=== PATIENT | female | born 1990 | race Caucasian/White ===

== ENCOUNTER 2017-07-01 16:10 | Observation (INO) | payer OTHER ==
--- NOTE | 2017-07-02 16:32 | US ---
EXAM DATE: 07/01/17 PATIENT'S AGE: 26 Patient: DANIEL SPEARS Facility: [place], [place] Site . Site : 1990 Study: US OB Pelvis [id number] 5:27:18 PM Ordering Physician: Omer Izquierdo Final Report: INDICATION: Decreased movement. TECHNIQUE: Obstetrical ultrasound. Ultrasound biophysical profile FINDINGS: Only 7 static images are sent for interpretation. A single live intrauterine is seen with cardiac activity at 136 beats per minute. I suspect there is cephalic presentation. Amniotic fluid volume was within normal limits with an ZELDA calculated at 16.07 cm. The biophysical profile was scored at normal with a scores of 2/2 for breathing, movement, tone, and amniotic fluid volume. Remainder negative. IMPRESSION: Single live intrauterine with normal biophysical profile. Dictated by Deepak Nicholson MD @ Jul 01 2017 5:42PM (Electronic Signature) Report Signed by Proxy. EFRAIN
== END 2017-07-01 17:45 | disposition home or self-care (01) ==
LOC: MW.OBCHECK 16:10 → MW.OB 16:27
PROVIDERS: ADMIT Obstetrics & Gynecology; ATTEND Obstetrics & Gynecology
DX: O36.8130 Decreased fetal movements, third trimester, not applicable or unspecified (principal); Z3A.39 39 weeks gestation of pregnancy
CPT/HCPCS: 59025; 76819; 76819-26

== ENCOUNTER 2017-07-19 05:17 | Inpatient (IN) | payer OTHER ==
[2017-07-19] MEDS ORDERED: Sodium Chloride 0.9% 10 ML Syringe FLUSH PRN (05:25)
[2017-07-19] MEDS ORDERED: ceFAZolin 2 GM in Premix Bag 1 BAG IV ONE (05:25)
[2017-07-19] MEDS ORDERED: Sodium Chloride 0.9% 2.5 ML Syringe FLUSH PRN (05:25)
[2017-07-19] MEDS ORDERED: Citric Acid/Sodium Citrate Solution 30 ML Cup PO SCH (05:30)
[2017-07-19] MEDS ORDERED: Oxytocin/0.9 % Sodium Chloride 30 UNIT/500 ML BAG IV SCH (05:30)
[2017-07-19] MEDS: Lactated Ringers 1,000 ML IV SCH ×2 (05:59→07:53)
[2017-07-19] MEDS ORDERED: Octyl 2-Cyanoacrylate 1 Tube ONE (07:29)
[2017-07-19] MEDS ORDERED: ePHEDrine 50 MG/ML SDV ONE (07:30)
[2017-07-19] MEDS ORDERED: Morphine PF 1 MG/ML Amp ONE (07:30)
[2017-07-19] MEDS ORDERED: Propofol 200 MG/20 ML SDV ONE (07:30)
[2017-07-19] MEDS ORDERED: Ketorolac 30 MG/ML SDV ONE (07:31)
[2017-07-19] MEDS ORDERED: ceFAZolin/Dextrose,Iso-Osmotic 2 GM/50 ML Duplex Bag IV ONE (07:31)
[2017-07-19] MEDS ORDERED: Ondansetron 4 MG/2 ML SDV ONE (07:31)
[2017-07-19] MEDS ORDERED: Lidocaine 2% 5 ML SDV ONE (07:31)
[2017-07-19] MEDS ORDERED: Phenylephrine/Normal Saline 100 MCG/ML 10 ML Syringe ONE (08:08)
--- NOTE | 2017-07-19 08:42 | PCM.PREANE ---
Preanesthetic Assessment - Anesthesia/Transfusion/Family Hx Anesthesia History: Prior Anesthesia Without Reaction Family History of Anesthesia Reaction: No Transfusion History: No Prior Transfusion(s) - Review of Systems Other: Reports: None - Physical Assessment NPO Status Date: 07/18/17 NPO Status Time: 23:30 Pulse: 112 O2 Sat by Pulse Oximetry: 99 Respiratory Rate: 16 Blood Pressure: 106/76 Temperature: 97 C Height: 5 ft 5 in Weight: 97.069 kg ASA Class: 2 Mental Status: Alert & Oriented x3 Airway Class: Mallampati = 1 Dentition: Reports: Normal Dentition Thyro-Mental Finger Breadths: 3 Mouth Opening Finger Breadths: 3 ROM/Head Extension: Full - Lab Values: Laboratory Last Values WBC 10.33 K/uL (4.0-11.0) 07/18/17 09:03 RBC 4.24 M/uL (4.30-5.90) L 07/18/17 09:03 Hgb 11.8 g/dL (12.0-16.0) L 07/18/17 09:03 Hct 34.2 % (36.0-46.0) L 07/18/17 09:03 MCV 80.7 fL (80.0-98.0) 07/18/17 09:03 MCH 27.8 pg (27.0-32.0) 07/18/17 09:03 MCHC 34.5 g/dL (31.0-37.0) 07/18/17 09:03 RDW Std Deviation 43.4 fl (28.0-62.0) 07/18/17 09:03 RDW Coeff of Enrique 15 % (11.0-15.0) 07/18/17 09:03 Plt Count 240 K/uL (150-400) 07/18/17 09:03 MPV 9.50 fL (7.40-12.00) 07/18/17 09:03 Nucleated RBC % 0.0 /100WBC 07/18/17 09:03 Nucleated RBCs # 0 K/uL 07/18/17 09:03 Blood Type O POSITIVE 07/18/17 09:03 Antibody Screen NEGATIVE 07/18/17 09:03 - Allergies Allergies/Adverse Reactions: Allergies Allergy/AdvReac Type Severity Reaction Status Date / Time terbutaline Allergy Tachycardia Verified 07/19/17 05:29 - Blood Blood Available: Yes Product(s) Available: PRBC - Anesthesia Plan Pre-Op Medication Ordered: Antacids - Acknowledgements Anesthesia Type Planned: Spinal Pt an Appropriate Candidate for the Planned Anesthesia: Yes Alternatives and Risks of Anesthesia Discussed w Pt/Guardian: Yes Pt/Guardian Understands and Agrees with Anesthesia Plan: Yes PreAnesthesia Questionnaire HEENT History: Reports: Other (See Below) Other HEENT History: wears glasses/contacts Cardiovascular History: Reports: Other (See Below) Other Cardiovascular History: sinus tachycardia during had echo 04/05 EF 60%. 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: - Infectious Disease History Infectious Disease History: Reports: Chicken Pox - Past Surgical History Head Surgeries/Procedures: Reports: None Female Surgical History: Reports: Section (x3) Other Female Surgeries/Procedures: c/section x3 Dermatological Surgical History: Reports: Plastic Surgical Reconstruction/ Repair (mckenzie to legs at age 1 had skin grafts) - SUBSTANCE USE Smoking Status *Q: Never Smoker Recreational Drug Use History: No - HOME MEDS Home Medications: Home Meds Iron 27 mg PO DAILY 07/16/17 [History] PNV95/Ferrous Fumarate/FA [ Vitamin Tablet] 1 tab PO DAILY 07/16/17 [ History] - CURRENT (IN HOUSE) MEDS Current Meds: Current Medications Citric Acid/Sodium Citrate (Bicitra Solution) 30 ml PO .ONCE LEONARDO Last Admin: 07/19/17 07:47 Dose: 30 ml Lactated Ringer's (Ringers, Lactated) 1,000 mls @ 500 mls/hr IV .BOLUS LEONARDO Last Admin: 07/19/17 07:53 Dose: 500 mls/hr Oxytocin/Sodium Chloride (Oxytocin 30 Unit/500 Ml-Ns) 30 unit in 500 mls @ 250 mls/hr IV TITRATE LEONARDO Sodium Chloride (Saline Flush) 10 ml FLUSH ASDIRECTED PRN PRN Reason: Keep Vein Open Sodium Chloride (Saline Flush) 2.5 ml FLUSH ASDIRECTED PRN PRN Reason: Keep Vein Open Discontinued Medications Cefazolin Sodium/Dextrose (Ancef) Confirm Administered Dose 2 gm IV .STK-MED ONE Stop: 07/19/17 07:32 Ephedrine Sulfate (Ephedrine Sulfate) Confirm Administered Dose 50 mg .ROUTE .STK-MED ONE Stop: 07/19/17 07:31 Cefazolin Sodium/Dextrose 2 gm (/ Premix) 50 mls @ 100 mls/hr IV ONETIME ONE Stop: 07/19/17 05:54 Ketorolac Tromethamine (Toradol) Confirm Administered Dose 30 mg .ROUTE .STK- MED ONE Stop: 07/19/17 07:32 Lidocaine (Xylocaine-Mpf 2%) Confirm Administered Dose 5 ml .ROUTE .STK-MED ONE Stop: 07/19/17 07:32 Morphine Sulfate (Duramorph Pf) Confirm Administered Dose 1 mg .ROUTE .STK-MED ONE Stop: 07/19/17 07:31 Octyl Cyanoacrylate (Dermabond Advance) Confirm Administered Dose 1 applic .ROUTE .STK-MED ONE Stop: 07/19/17 07:30 Ondansetron HCl (Zofran) Confirm Administered Dose 4 mg .ROUTE .STK-MED ONE Stop: 07/19/17 07:32 Phenylephrine HCl (Phenylephrine In Ns 100 Mcg/Ml) Confirm Administered Dose 1 mg .ROUTE .STK-MED ONE Stop: 07/19/17 08:09 Propofol (Diprivan 20 Ml) Confirm Administered Dose 200 mg .ROUTE .STK-MED ONE Stop: 07/19/17 07:31
[2017-07-19] MEDS ORDERED: Oxytocin 10 Units/1 ML SDV ONE (09:12)
[2017-07-19] MEDS ORDERED: Bisacodyl 10 MG Supp RECTAL PRN (09:25)
[2017-07-19] MEDS ORDERED: Lanolin 100% Cream 7 GM Tube TOP PRN (09:25)
[2017-07-19] MEDS ORDERED: Acetaminophen/oxyCODONE 325-5 MG Tab PO PRN (09:25)
[2017-07-19] MEDS ORDERED: diphenhydrAMINE 50 MG/ML SDV IVPUSH PRN ×2 (09:25→09:44)
--- NOTE | 2017-07-19 09:25 | PCM.OPNOTE ---
- General Post-Op/Procedure Note Date of Surgery/Procedure: 07/19/17 Operative Procedure(s): repeat low transverse Findings: Liveborn femal 99 weight 3410 grams, normal tubes and ovaries, very thin lower uterine segment. Subcutaneous, fascial rectus muscle dense and adhesions Pre Op Diagnosis: 39 weeks prior desires repeat Post-Op Diagnosis: Same Anesthesia Technique: Spinal Primary Surgeon: Felecia Tello Anesthesia Provider: Ilir Freitas Program Strategist: Loida Joiner Pathology: none Fluid Replacement, Intraop: 3,800 EBL in mLs: 1,000 Complications: None Known Condition: Good
[2017-07-19] MEDS ORDERED: Lactated Ringers 1,000 ML IV SCH (09:30)
[2017-07-19] MEDS ORDERED: Nalbuphine 10 MG/1 ML Vial IVPUSH PRN (09:44)
[2017-07-19] MEDS ORDERED: Naloxone 0.4 MG/ML Syringe IVPUSH PRN (09:44)
--- NOTE | 2017-07-19 10:21 | PCM.POSTAN ---
POST ANESTHESIA ASSESSMENT - MENTAL STATUS Mental Status: Alert, Oriented - RESPIRATORY Respiratory Status: Respiratory Rate WNL, Airway Patent, O2 Saturation Stable - CARDIOVASCULAR CV Status: Pulse Rate WNL, Blood Pressure Stable - GASTROINTESTINAL GI Status: No Symptoms - PAIN Pain Score: 0 - POST OP HYDRATION Hydration Status: Adequate & Stable
[2017-07-19] MEDS: Ketorolac 30 MG/ML SDV IVPUSH SCH ×3 (10:58→21:26)
--- NOTE | 2017-07-19 13:39 | OR ---
SURGEON: Felecia Tello M.D. DATE OF PROCEDURE: 07/19/2017 PREOPERATIVE DIAGNOSES: 1. Thirty-nine week intrauterine . 2. Prior deliveries, desires repeat. POSTOPERATIVE DIAGNOSES: 1. Thirty-nine week intrauterine . 2. Prior deliveries, desires repeat. PROCEDURE: Repeat low-transverse section. ANESTHESIA: Spinal. ESTIMATED BLOOD LOSS: 1000 mL. FLUIDS: 3800 mL crystalloid. FINDINGS: Liveborn female, scores 9 and 9, weighing 3410 g. Normal-appearing tubes and ovaries. Extremely thin lower uterine segment. Extensive adhesions between the subcutaneous tissue, fascia, and rectus muscle. COMPLICATIONS: None known. DISPOSITION: Stable to recovery. BRIEF HISTORY: This is a 26-year-old female, she is G4, P3. She presents for repeat delivery. Her care has been complicated by palpitations with SVT. She has seen the grocery store clerk who did perform an echocardiogram and Holter monitor with findings of SVT and she has had episodes throughout the , but has not required medication to this point. She is group B strep negative, O positive, rubella immune. Risks of delivery were discussed including risk of bleeding, infection, injury to bowel, bladder, blood vessels, ureters or other organs, risk of thromboembolic event, and risk of anesthesia. Understanding all these risks, she does desire to proceed. DESCRIPTION OF PROCEDURE: With the patient in left tilt position, under adequate spinal analgesia, the abdomen was prepped with chlorhexidine and draped in usual fashion for abdominal surgery. An appropriate time-out was held. SCDs were in place. Beach catheter was in place and she had received 2 g of Ancef IV. After documentation of adequate analgesia, the prior cicatrix was excised and the incision was carried through the subcutaneous tissue to the fascia, which was scored transversely in the midline. The fascial incision was extended using sharp and blunt dissection. The fascia was elevated from the underlying rectus muscles using sharp and blunt dissection. Extensive adhesions were noted. Once this was complete, the finger was used to enter the peritoneum. There were no adhesions anteriorly. The incision was extended using sharp and blunt dissection. The Kenn O retractor was placed. The visceral peritoneum over the lower uterine segment was incised and pushed well below the field of dissection. A very thin lower uterine segment was began to be incised with a scalpel, but opened without really any incision. The amniotic membranes were then ruptured and the head was delivered via the uterine incision with fundal pressure. The infant was bulb suctioned by nose and mouth. Cord was clamped x2 and cut. The infant handed to the nurse in attendance at delivery. The was a liveborn female, scores 9 and 9, weighing 3410 g. Cord blood was collected for cord ABGs as well as routine cord blood sampling. The placenta was removed by manual extraction. The uterus was cleaned with a dry laparotomy tape. The cervix was opened with a ring forceps. There was bleeding at the right aspect of the incision, this was grasped with a ring forceps and controlled with a [id number] suture of 0 Polysorb. The 0 Polysorb was then utilized to close the uterine incision with a running lock suture and then an imbricating layer also of 0 Polysorb. Several [id number] sutures were placed in for complete hemostasis. The paracolic gutters and posterior cul-de- sac were cleaned with a wet laparotomy tape. The uterine incision was again carefully inspected. At this point, she did have some tachycardia into the 140s with episode of hypotension and therefore, I waited until Anesthesia had corrected the hypotension and continued to observe the uterine incision and it was hemostatic. The Kenn O retractor was removed. The uterine incision was once again inspected. The rectus muscle and peritoneum were loosely approximated in the midline using a running mattress suture of 0 Polysorb. The posterior aspect of the fascia was inspected, any areas of bleeding that were noted were cauterized. The fascial incision was closed with a running suture of 0 Polysorb. Subcutaneous tissue was copiously irrigated. Any areas of bleeding that were noted were cauterized. The deep subcutaneous tissue was closed with a running suture of 3-0 plain followed by a subcuticular suture of 3-0 Polysorb followed by skin glue. Final sponge, needle, and instrument counts were reported as correct. There were no known complications. Mother and baby are in recovery in good condition. Cardiology has been reconsulted regarding the tachycardia for consideration of medication at this time. GARFIELD / DIANE /[id number]
[2017-07-19] MEDS: Ondansetron 4 MG/2 ML SDV IV PRN ×2 (15:44→20:21)
--- NOTE | 2017-07-19 17:16 | CONS ---
DATE OF CONSULTATION: DATE OF : 1990 PRIMARY CARE PHYSICIAN: None PCP REASON FOR CONSULTATION: Tachycardia. HISTORY OF PRESENT ILLNESS: This is a 26-year-old female, G4, P4, who just had a today was consulted to me due to the tachycardia during the operation. While she was in the operating room while doing the , she developed low normal blood pressure with a blood pressure of 100/50 and phenylephrine IV infusion was started and her heart rate stayed around 100 to 110 and all of a sudden her blood pressure dropped at 80/50 with a heart rate of 140 with concern about an SVT. However, there is no strip or EKG available when that happened and then the IV fluid was started with Ringer Lactate then the completed. When she was in the recovery room, her heart rate got better to below 100. An EKG was done, it looks sinus rhythm to me. When she was in her room after the operation, she was throwing up once. At that time, the telemetry shows sinus tachycardia still. There was no evidence of atrial fibrillation or SVT. I saw her in the clinic and echocardiogram was also done and it showed normal ejection fraction, only trace TR, trace MR, and Holter monitor also was completed as well and it showed a heart rate of 140 or 150 on the Holter monitor. To me it looks like a sinus tachycardia still and I believe that when she was in the operating room with a heart rate of 140 or 150 could be a sinus tachycardia, however, there is no strip or verbal when she had a high heart rate. Otherwise currently she denies severe pain. She has not eaten yet and she is on IV fluids now. Her heart rate right now is 80 to 90 and with blood pressure 98/56. Otherwise denies chest pain, palpitations. PAST MEDICAL HISTORY: Including no prior cardiac history. FAMILY HISTORY: Maternal grandfather has a history of pacemaker. Uncle had history of Loretta- Parkinson-White syndrome. REVIEW OF SYSTEMS: Except for palpitation has been negative for other symptoms. PHYSICAL EXAMINATION: GENERAL APPEARANCE: The patient looks tired. VITAL SIGNS: Heart rate of 80 to 90, temperature 36.5, blood pressure is 98/58, O2 saturation 100% on room air, respirations 18. HEENT: Not pale. Mouth dry. No jaundice. NECK: No JVD. HEART: Normal S1, S2. No murmur. LUNGS: Clear. ABDOMEN: Soft, nontender. Bowel sounds are present. No hepatosplenomegaly. EXTREMITIES: Legs, no edema. EKG was done on July 19, 2017, shows sinus rhythm. I did not appreciate any delta waves. Heart rate of 92, NH interval 148, QRS duration 86, QTc interval 441. Telemetry when she was heart rate in 140 to 150 shows sinus tachycardia. No evidence of atrial fibrillation or SVT. PLAN: This is a 26-year-old female, who just had a developed hypotension during the operation, could be related to the blood loss, volume loss, volume shift. I believe that the heart rate of 140 during the operation even though there was no verbal strip it could be related to sinus tachycardia, in other words reactive sinus tachycardia. Recommended to control pain, hydration. She just had blood work done and did not show any severe anemia or profound anemia I would not prescribe beta-moriah or AV pablo blocking agent at this time. This seems to be reactive sinus tachycardia. RENE CONTRERAS /[id number]
[2017-07-19] MEDS: Docusate Sodium 100 MG Cap PO SCH (21:27)
--- NOTE | 2017-07-20 01:34 | PCM48HPAN ---
Post Anesthesia Note - EVALUATION WITHIN 48HRS OF ANESTHETIC Vital Signs in Normal Range: Yes Patient Participated in Evaluation: Yes Respiratory Function Stable: Yes Airway Patent: Yes Cardiovascular Function Stable: Yes Hydration Status Stable: Yes Pain Control Satisfactory: Yes Nausea and Vomiting Control Satisfactory: Yes Mental Status Recovered: Yes Pulse Rate: 112 Resp Rate: 17 Temperature: 97 C Blood Pressure: 106/76
[2017-07-20] MEDS: Ketorolac 30 MG/ML SDV IVPUSH SCH ×2 (03:32→09:43)
[2017-07-20 05:26] LABS: CHLORIDE,CL 108 mmol/L (98-110); SODIUM,NA 137 mmol/L (136-146)
--- NOTE | 2017-07-20 08:17 | PCM.PNPP ---
<Татьяна Geronimo - Last Filed: 07/20/17 08:12> - General Info Date of Service: 07/20/17 Functional Status: Reports: Pain Controlled, Tolerating Diet, Ambulating - Review of Systems General: Denies: Fever, Weakness, Fatigue Pulmonary: Denies: Shortness of Breath, Pleuritic Chest Pain, Cough Cardiovascular: Denies: Chest Pain, Palpitations, Dyspnea on Exertion Gastrointestinal: Denies: Abdominal Pain Genitourinary: Denies: Dysuria - General Info Date of Service: 07/20/17 - Patient Data Vital Signs - Most Recent: Last Vital Signs Temp 97 C H 07/20/17 01:34 Pulse 78 07/20/17 04:02 Resp 17 07/20/17 06:05 BP 100/59 L 07/20/17 04:02 Pulse Ox 95 07/20/17 06:05 Weight - Most Recent: 214 lb I&O - Last 24 Hours: Intake & Output 07/19/17 07/20/17 07/20/17 22:59 06:59 14:59 Intake Total 120 552 Output Total 450 1600 Balance -330 -1048 Lab Results - Last 24 Hours: Laboratory Results - last 24 hr 07/20/17 07/20/17 Range/Units 04:54 04:54 Hgb 8.3 L (12.0-16.0) g/dL Hct 24.6 L (36.0-46.0) % Sodium 137 (136-146) mmol/L Potassium 4.6 (3.5-5.1) mmol/L Chloride 108 (98-110) mmol/L Carbon Dioxide 23 (21-31) mmol/L BUN 3 L (6.0-23.0) mg/dL Creatinine 0.5 L (0.6-1.5) mg/dL Est Cr Clr Drug Dosing 150.73 mL/min Estimated GFR (MDRD) > 60.0 ml/min Glucose 79 (60-110) mg/dL Calcium 8.3 L (8.8-10.8) mg/dL Med Orders - Current: Current Medications Bisacodyl (Dulcolax) 10 mg RECTAL .ONCE PRN PRN Reason: Constipation Citric Acid/Sodium Citrate (Bicitra Solution) 30 ml PO .ONCE [facility] Last Admin: 07/19/17 07:47 Dose: 30 ml Diphenhydramine HCl (Benadryl) 25 mg IVPUSH Q6H PRN PRN Reason: Itching or Nausea Diphenhydramine HCl (Benadryl) 25 mg IVPUSH Q4H PRN PRN Reason: Itching Stop: 07/20/17 09:48 Docusate Sodium (Colace) 100 mg PO BID [facility] Last Admin: 07/19/17 21:27 Dose: 100 mg Emollient Ointment (Lansinoh Hpa) 0 gm TOP ASDIRECTED PRN PRN Reason: Sore Nipples Lactated Ringer's (Ringers, Lactated) 1,000 mls @ 500 mls/hr IV .BOLUS [facility] Last Admin: 07/19/17 07:53 Dose: 500 mls/hr Oxytocin/Sodium Chloride (Oxytocin 30 Unit/500 Ml-Ns) 30 unit in 500 mls @ 250 mls/hr IV TITRATE [facility] Lactated Ringer's (Ringers, Lactated) 1,000 mls @ 125 mls/hr IV ASDIRECTED [facility] Last Admin: 07/19/17 21:27 Dose: 125 mls/hr Ibuprofen (Motrin) 800 mg PO Q8H PRN PRN Reason: mild pain or fever Ketorolac Tromethamine (Toradol) 30 mg IVPUSH Q6H [facility] Stop: 07/20/17 09:31 Last Admin: 07/20/17 03:32 Dose: 30 mg Nalbuphine HCl (Nubain) 5 mg IVPUSH Q3H PRN PRN Reason: Pruritis Stop: 07/20/17 09:50 Last Admin: 07/19/17 10:52 Dose: 5 mg Naloxone HCl (Narcan) 0.1 mg IVPUSH ONETIME PRN PRN Reason: Other Stop: 07/20/17 09:49 Ondansetron HCl (Zofran) 4 mg IV Q4H PRN PRN Reason: Nausea/Vomiting Last Admin: 07/19/17 20:21 Dose: 4 mg Oxycodone/Acetaminophen (Percocet 325-5 Mg) 1 tab PO Q4H PRN PRN Reason: Pain (moderate 4-6) Oxycodone/Acetaminophen (Percocet 325-5 Mg) 2 tab PO Q4H PRN PRN Reason: Pain (moderate 4-6) Sodium Chloride (Saline Flush) 10 ml FLUSH ASDIRECTED PRN PRN Reason: Keep Vein Open Sodium Chloride (Saline Flush) 2.5 ml FLUSH ASDIRECTED PRN PRN Reason: Keep Vein Open Discontinued Medications Cefazolin Sodium/Dextrose (Ancef) Confirm Administered Dose 2 gm IV .STK-MED ONE Stop: 07/19/17 07:32 Ephedrine Sulfate (Ephedrine Sulfate) Confirm Administered Dose 50 mg .ROUTE .STK-MED ONE Stop: 07/19/17 07:31 Cefazolin Sodium/Dextrose 2 gm (/ Premix) 50 mls @ 100 mls/hr IV ONETIME ONE Stop: 07/19/17 05:54 Last Admin: 07/19/17 10:58 Dose: Not Given Ketorolac Tromethamine (Toradol) Confirm Administered Dose 30 mg .ROUTE .STK- MED ONE Stop: 07/19/17 07:32 Lidocaine (Xylocaine-Mpf 2%) Confirm Administered Dose 5 ml .ROUTE .STK-MED ONE Stop: 07/19/17 07:32 Morphine Sulfate (Duramorph Pf) Confirm Administered Dose 1 mg .ROUTE .STK-MED ONE Stop: 07/19/17 07:31 Octyl Cyanoacrylate (Dermabond Advance) Confirm Administered Dose 1 applic .ROUTE .STK-MED ONE Stop: 07/19/17 07:30 Ondansetron HCl (Zofran) Confirm Administered Dose 4 mg .ROUTE .STK-MED ONE Stop: 07/19/17 07:32 Oxytocin (Pitocin) Confirm Administered Dose 20 unit .ROUTE .STK-MED ONE Stop: 07/19/17 09:13 Phenylephrine HCl (Phenylephrine In Ns 100 Mcg/Ml) Confirm Administered Dose 1 mg .ROUTE .STK-MED ONE Stop: 07/19/17 08:09 Propofol (Diprivan 20 Ml) Confirm Administered Dose 200 mg .ROUTE .STK-MED ONE Stop: 07/19/17 07:31 - Infant Interaction Infant Disposition, : [place] in Room with Family Infant Feeding: Attempted ; Nursed Fair/Poor Support Person: - Recovery Exam Fundal Tone: Firm Fundal Level: 1 Fingerbreadths Below Umbilicus Fundal Placement: Midline Lochia Amount: Small Lochia Color: Rubra/Red Perineum Description: Intact, Minimal Bruising/Swelling Episiotomy/Laceration: Approximated Bladder Status: Voiding Urinary Elimination: Indwelling Catheter - Exam General: Alert, Oriented Neck: Supple Lungs: Clear to Auscultation, Normal Respiratory Effort Cardiovascular: Regular Rate, Regular Rhythm, No Murmurs GI/Abdominal Exam: Normal Bowel Sounds, No Organomegaly, No Distention Extremities: Normal Inspection, Pedal Edema (trace) Wound/Incisions: Healing Well - Problem List & Annotations (1) delivery delivered SNOMED Code(s): 502314492 Code(s): O82 - ENCOUNTER FOR DELIVERY WITHOUT INDICATION Status: Acute Current Visit: Yes - Problem List Review Problem List Initiated/Reviewed/Updated: Yes - Assessment Assessment:: POD#1 s/p RLTCS with episode of Tachycardia post delivery. Pesticide Control Inspector was consulted - appears to be sinus tachycardia. Continue to monitor with Telemetry. Denies chest pain or shortness of breath. - Plan Plan:: Continue routine post-op cares. Anticipate discharge home tomorrow. <Laura Garcia - Last Filed: 07/20/17 08:53> - Patient Data Vital Signs - Most Recent: Last Vital Signs Temp 97 C H 07/20/17 01:34 Pulse 78 07/20/17 04:02 Resp 17 07/20/17 06:05 BP 100/59 L 07/20/17 04:02 Pulse Ox 95 07/20/17 06:05 I&O - Last 24 Hours: Intake & Output 07/19/17 07/20/17 07/20/17 22:59 06:59 14:59 Intake Total 120 552 Output Total 450 1600 Balance -330 1048 Lab Results - Last 24 Hours: Laboratory Results - last 24 hr 07/20/17 07/20/17 Range/Units 04:54 04:54 Hgb 8.3 L (12.0-16.0) g/dL Hct 24.6 L (36.0-46.0) % Sodium 137 (136-146) mmol/L Potassium 4.6 (3.5-5.1) mmol/L Chloride 108 (98-110) mmol/L Carbon Dioxide 23 (21-31) mmol/L BUN 3 L (6.0-23.0) mg/dL Creatinine 0.5 L (0.6-1.5) mg/dL Est Cr Clr Drug Dosing 150.73 mL/min Estimated GFR (MDRD) > 60.0 ml/min Glucose 79 (60-110) mg/dL Calcium 8.3 L (8.8-10.8) mg/dL Med Orders - Current: Current Medications Bisacodyl (Dulcolax) 10 mg RECTAL .ONCE PRN PRN Reason: Constipation Citric Acid/Sodium Citrate (Bicitra Solution) 30 ml PO .ONCE [facility] Last Admin: 07/19/17 07:47 Dose: 30 ml Diphenhydramine HCl (Benadryl) 25 mg IVPUSH Q6H PRN PRN Reason: Itching or Nausea Diphenhydramine HCl (Benadryl) 25 mg IVPUSH Q4H PRN PRN Reason: Itching Stop: 07/20/17 09:48 Docusate Sodium (Colace) 100 mg PO BID [facility] Last Admin: 07/19/17 21:27 Dose: 100 mg Emollient Ointment (Lansinoh Hpa) 0 gm TOP ASDIRECTED PRN PRN Reason: Sore Nipples Lactated Ringer's (Ringers, Lactated) 1,000 mls @ 500 mls/hr IV .BOLUS [facility] Last Admin: 07/19/17 07:53 Dose: 500 mls/hr Oxytocin/Sodium Chloride (Oxytocin 30 Unit/500 Ml-Ns) 30 unit in 500 mls @ 250 mls/hr IV TITRATE [facility] Lactated Ringer's (Ringers, Lactated) 1,000 mls @ 125 mls/hr IV ASDIRECTED [facility] Last Admin: 07/19/17 21:27 Dose: 125 mls/hr Ibuprofen (Motrin) 800 mg PO Q8H PRN PRN Reason: mild pain or fever Ketorolac Tromethamine (Toradol) 30 mg IVPUSH Q6H [facility] Stop: 07/20/17 09:31 Last Admin: 07/20/17 03:32 Dose: 30 mg Nalbuphine HCl (Nubain) 5 mg IVPUSH Q3H PRN PRN Reason: Pruritis Stop: 07/20/17 09:50 Last Admin: 07/19/17 10:52 Dose: 5 mg Naloxone HCl (Narcan) 0.1 mg IVPUSH ONETIME PRN PRN Reason: Other Stop: 07/20/17 09:49 Ondansetron HCl (Zofran) 4 mg IV Q4H PRN PRN Reason: Nausea/Vomiting Last Admin: 07/19/17 20:21 Dose: 4 mg Oxycodone/Acetaminophen (Percocet 325-5 Mg) 1 tab PO Q4H PRN PRN Reason: Pain (moderate 4-6) Oxycodone/Acetaminophen (Percocet 325-5 Mg) 2 tab PO Q4H PRN PRN Reason: Pain (moderate 4-6) Sodium Chloride (Saline Flush) 10 ml FLUSH ASDIRECTED PRN PRN Reason: Keep Vein Open Sodium Chloride (Saline Flush) 2.5 ml FLUSH ASDIRECTED PRN PRN Reason: Keep Vein Open Discontinued Medications Cefazolin Sodium/Dextrose (Ancef) Confirm Administered Dose 2 gm IV .STK-MED ONE Stop: 07/19/17 07:32 Ephedrine Sulfate (Ephedrine Sulfate) Confirm Administered Dose 50 mg .ROUTE .STK-MED ONE Stop: 07/19/17 07:31 Cefazolin Sodium/Dextrose 2 gm (/ Premix) 50 mls @ 100 mls/hr IV ONETIME ONE Stop: 07/19/17 05:54 Last Admin: 07/19/17 10:58 Dose: Not Given Ketorolac Tromethamine (Toradol) Confirm Administered Dose 30 mg .ROUTE .STK- MED ONE Stop: 07/19/17 07:32 Lidocaine (Xylocaine-Mpf 2%) Confirm Administered Dose 5 ml .ROUTE .STK-MED ONE Stop: 07/19/17 07:32 Morphine Sulfate (Duramorph Pf) Confirm Administered Dose 1 mg .ROUTE .STK-MED ONE Stop: 07/19/17 07:31 Octyl Cyanoacrylate (Dermabond Advance) Confirm Administered Dose 1 applic .ROUTE .STK-MED ONE Stop: 07/19/17 07:30 Ondansetron HCl (Zofran) Confirm Administered Dose 4 mg .ROUTE .STK-MED ONE Stop: 07/19/17 07:32 Oxytocin (Pitocin) Confirm Administered Dose 20 unit .ROUTE .STK-MED ONE Stop: 07/19/17 09:13 Phenylephrine HCl (Phenylephrine In Ns 100 Mcg/Ml) Confirm Administered Dose 1 mg .ROUTE .STK-MED ONE Stop: 07/19/17 08:09 Propofol (Diprivan 20 Ml) Confirm Administered Dose 200 mg .ROUTE .STK-MED ONE Stop: 07/19/17 07:31 - Assessment Assessment:: Agree with above. - Plan Plan:: Continue with current management
[2017-07-20] MEDS: Docusate Sodium 100 MG Cap PO SCH ×2 (09:44→20:15)
[2017-07-20] MEDS: Ibuprofen 800 MG Tab PO PRN ×2 (15:51→23:23)
--- NOTE | 2017-07-20 16:25 | PCM.PN ---
- General Info Date of Service: 07/20/17 Admission Dx/Problem (Free Text): s/p C section with tachycardia Subjective Update: HR diogo to 140-150, on telemetry, ST Functional Status: Reports: Pain Controlled - Review of Systems General: Reports: No Symptoms HEENT: Reports: No Symptoms Pulmonary: Reports: No Symptoms Cardiovascular: Reports: No Symptoms Gastrointestinal: Reports: No Symptoms Genitourinary: Reports: No Symptoms Musculoskeletal: Reports: No Symptoms Skin: Reports: No Symptoms Neurological: Reports: No Symptoms - Patient Data Vitals - Most Recent: Last Vital Signs Temp 36.3 C 07/20/17 16:01 Pulse 89 07/20/17 16:01 Resp 16 07/20/17 16:01 BP 104/68 07/20/17 16:01 Pulse Ox 96 07/20/17 16:01 Weight - Most Recent: 97.069 kg I&O - Last 24 Hours: Intake & Output 07/20/17 07/20/17 07/20/17 06:59 14:59 22:59 Intake Total 552 Output Total 1600 Balance -1048 Lab Results Last 24 Hours: Laboratory Results - last 24 hr 07/20/17 07/20/17 Range/Units 04:54 04:54 Hgb 8.3 L (12.0-16.0) g/dL Hct 24.6 L (36.0-46.0) % Sodium 137 (136-146) mmol/L Potassium 4.6 (3.5-5.1) mmol/L Chloride 108 (98-110) mmol/L Carbon Dioxide 23 (21-31) mmol/L BUN 3 L (6.0-23.0) mg/dL Creatinine 0.5 L (0.6-1.5) mg/dL Est Cr Clr Drug Dosing 150.73 mL/min Estimated GFR (MDRD) > 60.0 ml/min Glucose 79 (60-110) mg/dL Calcium 8.3 L (8.8-10.8) mg/dL Med Orders - Current: Current Medications Bisacodyl (Dulcolax) 10 mg RECTAL .ONCE PRN PRN Reason: Constipation Citric Acid/Sodium Citrate (Bicitra Solution) 30 ml PO .ONCE [facility] Last Admin: 07/19/17 07:47 Dose: 30 ml Diphenhydramine HCl (Benadryl) 25 mg IVPUSH Q6H PRN PRN Reason: Itching or Nausea Docusate Sodium (Colace) 100 mg PO BID [facility] Last Admin: 07/20/17 09:44 Dose: 100 mg Emollient Ointment (Lansinoh Hpa) 0 gm TOP ASDIRECTED PRN PRN Reason: Sore Nipples Last Admin: 07/20/17 15:53 Dose: 7 gm Lactated Ringer's (Ringers, Lactated) 1,000 mls @ 500 mls/hr IV .BOLUS [facility] Last Admin: 07/19/17 07:53 Dose: 500 mls/hr Oxytocin/Sodium Chloride (Oxytocin 30 Unit/500 Ml-Ns) 30 unit in 500 mls @ 250 mls/hr IV TITRATE [facility] Lactated Ringer's (Ringers, Lactated) 1,000 mls @ 125 mls/hr IV ASDIRECTED [facility] Last Admin: 07/19/17 21:27 Dose: 125 mls/hr Ibuprofen (Motrin) 800 mg PO Q8H PRN PRN Reason: mild pain or fever Last Admin: 07/20/17 15:51 Dose: 800 mg Ondansetron HCl (Zofran) 4 mg IV Q4H PRN PRN Reason: Nausea/Vomiting Last Admin: 07/19/17 20:21 Dose: 4 mg Oxycodone/Acetaminophen (Percocet 325-5 Mg) 1 tab PO Q4H PRN PRN Reason: Pain (moderate 4-6) Oxycodone/Acetaminophen (Percocet 325-5 Mg) 2 tab PO Q4H PRN PRN Reason: Pain (moderate 4-6) Sodium Chloride (Saline Flush) 10 ml FLUSH ASDIRECTED PRN PRN Reason: Keep Vein Open Sodium Chloride (Saline Flush) 2.5 ml FLUSH ASDIRECTED PRN PRN Reason: Keep Vein Open Discontinued Medications Cefazolin Sodium/Dextrose (Ancef) Confirm Administered Dose 2 gm IV .STK-MED ONE Stop: 07/19/17 07:32 Diphenhydramine HCl (Benadryl) 25 mg IVPUSH Q4H PRN PRN Reason: Itching Stop: 07/20/17 09:48 Ephedrine Sulfate (Ephedrine Sulfate) Confirm Administered Dose 50 mg .ROUTE .STK-MED ONE Stop: 07/19/17 07:31 Cefazolin Sodium/Dextrose 2 gm (/ Premix) 50 mls @ 100 mls/hr IV ONETIME ONE Stop: 07/19/17 05:54 Last Admin: 07/19/17 10:58 Dose: Not Given Ketorolac Tromethamine (Toradol) Confirm Administered Dose 30 mg .ROUTE .STK- MED ONE Stop: 07/19/17 07:32 Ketorolac Tromethamine (Toradol) 30 mg IVPUSH Q6H [facility] Stop: 07/20/17 09:31 Last Admin: 07/20/17 09:43 Dose: 30 mg Lidocaine (Xylocaine-Mpf 2%) Confirm Administered Dose 5 ml .ROUTE .STK-MED ONE Stop: 07/19/17 07:32 Morphine Sulfate (Duramorph Pf) Confirm Administered Dose 1 mg .ROUTE .STK-MED ONE Stop: 07/19/17 07:31 Nalbuphine HCl (Nubain) 5 mg IVPUSH Q3H PRN PRN Reason: Pruritis Stop: 07/20/17 09:50 Last Admin: 07/19/17 10:52 Dose: 5 mg Naloxone HCl (Narcan) 0.1 mg IVPUSH ONETIME PRN PRN Reason: Other Stop: 07/20/17 09:49 Octyl Cyanoacrylate (Dermabond Advance) Confirm Administered Dose 1 applic .ROUTE .STK-MED ONE Stop: 07/19/17 07:30 Ondansetron HCl (Zofran) Confirm Administered Dose 4 mg .ROUTE .STK-MED ONE Stop: 07/19/17 07:32 Oxytocin (Pitocin) Confirm Administered Dose 20 unit .ROUTE .STK-MED ONE Stop: 07/19/17 09:13 Phenylephrine HCl (Phenylephrine In Ns 100 Mcg/Ml) Confirm Administered Dose 1 mg .ROUTE .STK-MED ONE Stop: 07/19/17 08:09 Propofol (Diprivan 20 Ml) Confirm Administered Dose 200 mg .ROUTE .STK-MED ONE Stop: 07/19/17 07:31 - Exam General: Alert, Oriented HEENT: Pupils Equal, Pupils Reactive Neck: Supple Lungs: Clear to Auscultation Cardiovascular: Regular Rate, Regular Rhythm GI/Abdominal Exam: Normal Bowel Sounds (Female) Exam: Normal External Exam Back Exam: Normal Inspection Extremities: Normal Inspection Skin: Warm Wound/Incisions: Healing Well Neurological: No New Focal Deficit EKG INTERPRETATION Rhythm: NSR - Problem List Review Problem List Initiated/Reviewed/Updated: Yes - My Orders Last 24 Hours: My Active Orders 07/20/17 14:29 Discontinue Telemetry Monitoring [Cardiac Monitoring Discontinue] [RC] Click to Edit - Assessment Assessment:: Agree with above. - Plan Plan:: 26F s/p C section with tachycardia during surgery 1. tachycardia, she has had tachycardia intermittently during her hospital stay , and it was sinus tachycardia. Even though there was no strips available during surgery, I believed most likely sinus tachycardia. Watchful management. Thank you for allowing me in patient care, please feel free to reach us anytime with any questions. All questions asked were answered. Patient in agreement with plan of care
[2017-07-20] MEDS: Acetaminophen/oxyCODONE 325-5 MG Tab PO PRN (20:15)
[2017-07-21] MEDS: Acetaminophen/oxyCODONE 325-5 MG Tab PO PRN ×2 (03:54→09:45)
[2017-07-21] MEDS: Ibuprofen 800 MG Tab PO PRN (08:19)
[2017-07-21] MEDS: Docusate Sodium 100 MG Cap PO SCH (08:19)
--- NOTE | 2017-07-21 09:30 | PCM.PNPP ---
- General Info Date of Service: 07/21/17 Subjective Update: Patient is feeling well--no episodes of tachycardia or palpitations. Pain is controlled. She is ambulating, voiding, passing flatus. Lochia is minimal. She very much wants to go home today. - Review of Systems General: Denies: Fever Pulmonary: Denies: Shortness of Breath Cardiovascular: Denies: Chest Pain, Palpitations, Lightheadedness Gastrointestinal: Reports: Flatus. Denies: Nausea, Vomiting Genitourinary: Denies: Flank Pain Psychiatric: Reports: No Symptoms - General Info Date of Service: 07/21/17 - Patient Data Vital Signs - Most Recent: Last Vital Signs Temp 36.4 C 07/21/17 07:29 Pulse 78 07/21/17 07:29 Resp 14 07/21/17 07:29 BP 97/57 L 07/21/17 07:29 Pulse Ox 96 07/21/17 07:29 Weight - Most Recent: 97.069 kg Med Orders - Current: Current Medications Bisacodyl (Dulcolax) 10 mg RECTAL .ONCE PRN PRN Reason: Constipation Citric Acid/Sodium Citrate (Bicitra Solution) 30 ml PO .ONCE [facility] Last Admin: 07/19/17 07:47 Dose: 30 ml Diphenhydramine HCl (Benadryl) 25 mg IVPUSH Q6H PRN PRN Reason: Itching or Nausea Docusate Sodium (Colace) 100 mg PO BID [facility] Last Admin: 07/21/17 08:19 Dose: 100 mg Emollient Ointment (Lansinoh Hpa) 0 gm TOP ASDIRECTED PRN PRN Reason: Sore Nipples Last Admin: 07/20/17 15:53 Dose: 7 gm Lactated Ringer's (Ringers, Lactated) 1,000 mls @ 500 mls/hr IV .BOLUS [facility] Last Admin: 07/19/17 07:53 Dose: 500 mls/hr Oxytocin/Sodium Chloride (Oxytocin 30 Unit/500 Ml-Ns) 30 unit in 500 mls @ 250 mls/hr IV TITRATE [facility] Lactated Ringer's (Ringers, Lactated) 1,000 mls @ 125 mls/hr IV ASDIRECTED [facility] Last Admin: 07/19/17 21:27 Dose: 125 mls/hr Ibuprofen (Motrin) 800 mg PO Q8H PRN PRN Reason: mild pain or fever Last Admin: 07/21/17 08:19 Dose: 800 mg Ondansetron HCl (Zofran) 4 mg IV Q4H PRN PRN Reason: Nausea/Vomiting Last Admin: 07/19/17 20:21 Dose: 4 mg Oxycodone/Acetaminophen (Percocet 325-5 Mg) 1 tab PO Q4H PRN PRN Reason: Pain (moderate 4-6) Last Admin: 07/21/17 03:54 Dose: 1 tab Oxycodone/Acetaminophen (Percocet 325-5 Mg) 2 tab PO Q4H PRN PRN Reason: Pain (moderate 4-6) Sodium Chloride (Saline Flush) 10 ml FLUSH ASDIRECTED PRN PRN Reason: Keep Vein Open Sodium Chloride (Saline Flush) 2.5 ml FLUSH ASDIRECTED PRN PRN Reason: Keep Vein Open Discontinued Medications Cefazolin Sodium/Dextrose (Ancef) Confirm Administered Dose 2 gm IV .STK-MED ONE Stop: 07/19/17 07:32 Diphenhydramine HCl (Benadryl) 25 mg IVPUSH Q4H PRN PRN Reason: Itching Stop: 07/20/17 09:48 Ephedrine Sulfate (Ephedrine Sulfate) Confirm Administered Dose 50 mg .ROUTE .STK-MED ONE Stop: 07/19/17 07:31 Cefazolin Sodium/Dextrose 2 gm (/ Premix) 50 mls @ 100 mls/hr IV ONETIME ONE Stop: 07/19/17 05:54 Last Admin: 07/19/17 10:58 Dose: Not Given Ketorolac Tromethamine (Toradol) Confirm Administered Dose 30 mg .ROUTE .STK- MED ONE Stop: 07/19/17 07:32 Ketorolac Tromethamine (Toradol) 30 mg IVPUSH Q6H [facility] Stop: 07/20/17 09:31 Last Admin: 07/20/17 09:43 Dose: 30 mg Lidocaine (Xylocaine-Mpf 2%) Confirm Administered Dose 5 ml .ROUTE .STK-MED ONE Stop: 07/19/17 07:32 Morphine Sulfate (Duramorph Pf) Confirm Administered Dose 1 mg .ROUTE .STK-MED ONE Stop: 07/19/17 07:31 Nalbuphine HCl (Nubain) 5 mg IVPUSH Q3H PRN PRN Reason: Pruritis Stop: 07/20/17 09:50 Last Admin: 07/19/17 10:52 Dose: 5 mg Naloxone HCl (Narcan) 0.1 mg IVPUSH ONETIME PRN PRN Reason: Other Stop: 07/20/17 09:49 Octyl Cyanoacrylate (Dermabond Advance) Confirm Administered Dose 1 applic .ROUTE .STK-MED ONE Stop: 07/19/17 07:30 Ondansetron HCl (Zofran) Confirm Administered Dose 4 mg .ROUTE .STK-MED ONE Stop: 07/19/17 07:32 Oxytocin (Pitocin) Confirm Administered Dose 20 unit .ROUTE .STK-MED ONE Stop: 07/19/17 09:13 Phenylephrine HCl (Phenylephrine In Ns 100 Mcg/Ml) Confirm Administered Dose 1 mg .ROUTE .STK-MED ONE Stop: 07/19/17 08:09 Propofol (Diprivan 20 Ml) Confirm Administered Dose 200 mg .ROUTE .STK-MED ONE Stop: 07/19/17 07:31 - Interaction Disposition, : [place] in Room with Family Feeding: Attempted ; Nursed Fair/Poor Support Person: - Recovery Exam Fundal Tone: Firm Fundal Level: 1 Fingerbreadths Below Umbilicus Fundal Placement: Midline Lochia Amount: Scant Lochia Color: Rubra/Red Perineum Description: Intact, Minimal Bruising/Swelling Episiotomy/Laceration: None Bladder Status: Voiding Urinary Elimination: Voided - Exam General: Alert, Oriented Lungs: Normal Respiratory Effort Cardiovascular: Regular Rate, Regular Rhythm GI/Abdominal Exam: Normal Bowel Sounds, Soft. No: Guarding, Rigid Extremities: Pedal Edema (trace). No: Jr's Sign Skin: Warm, Dry Wound/Incisions: Healing Well, No Drainage. No: Erythema Psy/Mental Status: Alert - Problem List & Annotations (1) delivery delivered SNOMED Code(s): 468141399 Code(s): O82 - ENCOUNTER FOR DELIVERY WITHOUT INDICATION Status: Acute Current Visit: Yes - Problem List Review Problem List Initiated/Reviewed/Updated: Yes - My Orders Last 24 Hours: My Active Orders 07/21/17 09:26 Ready for Discharge [RC] PER UNIT ROUTINE - Assessment Assessment:: POD 2 status post repeat c section - Plan Plan:: [employer] Repairer assessed patient and advises no further intervention for intermittent tachycardia at this time. Allow patient to go home today. Discharge instructions reviewed. infection and bleeding warnings reviewed. Follow up at [facility] 2 and 6 weeks. If feels has symptomatic tachycardia in interval, she is to call and will advise urgent evaluation. Patient agrees to plan of care.
== END 2017-07-21 10:30 | disposition home or self-care (01) | DRG 766 ==
LOC: MW.OB 05:17
PROVIDERS: ADMIT Obstetrics & Gynecology; ATTEND Obstetrics & Gynecology
PROC: 10D00Z1 Extraction of Products of Conception, Low, Open Approach (ICD-10-PCS; principal; 2017-07-19)
DX: O34.211 Maternal care for low transverse scar from previous cesarean delivery (principal); Z3A.39 39 weeks gestation of pregnancy; Z37.0 Single live birth; R00.0 Tachycardia, unspecified
CPT/HCPCS: 01961; 36415; 80048; 85014; 85018; 85027; 86850; 86900; 86901; 93005; A9270-GY; J0690; J1885; J2274; J2300; J2405; J2590; J2704; J7120

== ENCOUNTER 2017-08-07 18:18 | Emergency (ER) | payer OTHER ==
[2017-08-07] MEDS ORDERED: Sodium Chloride 0.9% 1,000 ML IV ONE (18:47)
[2017-08-07] MEDS ORDERED: Acetaminophen 500 MG Tab PO ONE (18:47)
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
[2017-08-07 19:34] LABS: CHLORIDE,CL 101 mmol/L (98-107); SODIUM,NA 138 mmol/L (136-145)
[2017-08-07] MEDS ORDERED: Iopamidol 755 Mg/ML 100 ML Bottle IVPUSH STA (21:19)
[2017-08-07] MEDS ORDERED: cefTRIAXone 1,000 MG in Sodium Chloride 0.9% 50 ML IV ONE (21:59)
[2017-08-07] MEDS ORDERED: cefTRIAXone 1 GM in Premix Bag 1 BAG IV ONE (22:07)
--- NOTE | 2017-08-08 08:04 | CR ---
EXAM DATE: 08/07/17 PATIENT'S AGE: 26 Patient: DANIEL SPEARS Facility: [place], [place] Site . Site : 1990 Study: XRay Chest [id number] 7:57:57 PM Ordering Physician: Doctor Salmon Final Report: INDICATION: FEVER FOR 1 DAY WITH COUGH. LUNG PAIN. DYSPHAGIA. TECHNIQUE: Chest radiograph 2 views COMPARISON: None FINDINGS: Cardiovascular and mediastinum: The heart silhouette is normal in size and morphology. The mediastinum is normal in appearance. Lungs and pleural spaces: Both lungs are unremarkable in appearance. No sign of pleural effusion seen. No pneumothorax is identified. Bones and soft tissues: No significant findings. IMPRESSION: 1. No acute cardiopulmonary disease is seen. Dictated by Juan Daniel Aranda MD @ 08/07/2017 8:01:13 PM Dictated by: Juan Daniel Aranda MD @ 08/07/2017 20:01:22 (Electronic Signature) Report Signed by Proxy. EFRAIN
--- NOTE | 2017-08-08 08:24 | CT ---
EXAM DATE: 08/07/17 PATIENT'S AGE: 26 Patient: DANIEL SPEARS Facility: [place], [place] Site . Site : 1988 Study: CT Abdomen/Pelvis With [id number] 9:38:47 PM Ordering Physician: Doctor Salmon Final Report: INDICATION: Abdominal pain, recent TECHNIQUE: CT abdomen and pelvis acquired with 100 cc Isovue 370 IV contrast. COMPARISON: None FINDINGS: Lower chest: Unremarkable. Liver: Unremarkable. Spleen: Unremarkable. Pancreas: Unremarkable. Gallbladder and bile ducts: Unremarkable. Adrenal glands: Unremarkable. Kidneys: Unremarkable. GI tract: Unremarkable. Appendix is normal. Vascular structures: Unremarkable. Lymph nodes: Unremarkable. Miscellaneous: Skin thickening and subcutaneous fat stranding in the lower abdominal wall consistent with recent history of . No free air or significant free fluid. Pelvic Organs: Enlarged uterus consistent with state. There is a moderate amount of fluid within the endometrial canal. Bones: Unremarkable for age. IMPRESSION: Moderate amount of endometrial fluid. This could represent resolving hematoma. Recommend pelvic ultrasound for further evaluation. Please note that all CT scans at this facility use dose modulation, iterative reconstruction, and/or weight-based dosing when appropriate to reduce radiation dose to as low as reasonably achievable. Dictated by Susie Smith MD @ Aug 07 2017 9:40PM (Electronic Signature) Report Signed by Proxy. [facility]
== END 2017-08-07 22:49 | disposition home or self-care (01) ==
LOC: MW.ED 18:18
DX: O86.20 Urinary tract infection following delivery, unspecified (principal); Z88.8 Allergy status to other drugs, medicaments and biological substances
CPT/HCPCS: 36415; 71046; 74177; 80053; 81001; 83605; 85025; 87040; 87086; 87804; 96361; 96365; 99284; A9270; J0696; J7040; Q9967; 99283

== ENCOUNTER 2018-09-07 21:49 | Emergency (ER) | payer BC, OTHER ==
[2018-09-07] MEDS ORDERED: Sodium Chloride 0.9% 1,000 ML IV ONE (22:10)
[2018-09-07] MEDS ORDERED: Ketorolac 30 MG/ML SDV IVPUSH ONE (22:10)
[2018-09-07] MEDS ORDERED: Sodium Chloride 0.9% 2.5 ML Syringe FLUSH PRN (22:10)
[2018-09-07] MEDS ORDERED: Sodium Chloride 0.9% 10 ML Syringe FLUSH PRN (22:10)
[2018-09-07] MEDS ORDERED: Ondansetron 4 MG/2 ML SDV IVPUSH ONE (22:10)
--- NOTE | 2018-09-07 22:12 | EDM.PDOC ---
ED HPI GENERAL MEDICAL PROBLEM - General Chief Complaint: General Stated Complaint: PT HAS COUGH AND BODY PAIN Time Seen by Provider: 09/07/18 22:03 - History of Present Illness INITIAL COMMENTS - FREE TEXT/NARRATIVE: HISTORY AND PHYSICAL: History of present illness: The patient is a healthy 27-year-old female with no pulmonary or abdominal history who presents with a one-week history of coughing occasionally productive of phlegm nasal congestion and fevers up to 101. The patient not that her flu shot this year and she says that it has been progressive and the symptoms associated with body aches and pain. She has no sore throat or ear pain and no specific sinus pain or headache. She started having vomiting over the last 2 days, sometimes posttussive sometimes without and no diarrhea. She says she's been trying to keep up with her fluids but it has been difficult and she has no urinary complaints. Patient denies as her had a vasectomy Has been using Tylenol and ibuprofen for the fevers Review of systems: As per history of present illness and below otherwise all systems reviewed and negative. Past medical history: As per history of present illness and as reviewed below otherwise noncontributory. Surgical history: As per history of present illness and as reviewed below otherwise noncontributory. Social history: No reported history of drug or alcohol abuse. Family history: As per history of present illness and as reviewed below otherwise noncontributory. Physical exam: General: Well-developed well-nourished female who is nontoxic and has nasal quality to voice. She has a dry cough on my evaluation. Vital signs are noted by me HEENT: Atraumatic, normocephalic, pupils reactive, negative for conjunctival pallor or scleral icterus, mucous membranes moist, throat clear, neck supple, nontender, trachea midline. There is no cervical adenopathy or nuchal rigidity Lungs: Clear to auscultation, breath sounds equal bilaterally, chest nontender. No wheezing stridor or work of breathing Heart: S1S2, regular and rhythm no overt murmurs Abdomen: Soft, nondistended, minimal upper abdominal tenderness which is vague and does not localize, bowel sounds are normoactive. Negative for masses or hepatosplenomegaly. Pelvis: Stable nontender. Genitourinary: Deferred. Rectal: Deferred. Extremities: Atraumatic, negative for cords or calf pain. Neurovascular unremarkable. Neuro: Awake, alert, oriented. Cranial nerves II through XII unremarkable. Cerebellum unremarkable. Motor and sensory unremarkable throughout. Exam nonfocal. Diagnostics: CBC CMP UA with reflex lipase influenza swab chest x-ray Therapeutics: IV fluids Zofran Toradol Impression: Influenza A, vomiting improved Definitive disposition and diagnosis as appropriate pending reevaluation and review of above. Treatments [employer]: Reports: Acetaminophen head Pain Score (Numeric/FACES): 5 - Related Data Allergies Allergy/AdvReac Type Severity Reaction Status Date / Time terbutaline Allergy Tachycardia Verified 09/07/18 22:10 Home Meds: Home Meds . [No Known Home Meds] 09/07/18 [History] Past Medical History HEENT History: Reports: Other (See Below) Other HEENT History: wears glasses/contacts Cardiovascular History: Reports: Other (See Below) Other Cardiovascular History: sinus tachycardia during had echo 04/05 EF 60%. 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: Musculoskeletal History: Reports: None Neurological History: Reports: None Psychiatric History: Reports: None Endocrine/Metabolic History: Reports: None Hematologic History: Reports: None Immunologic History: Reports: None Oncologic (Cancer) History: Reports: None Dermatologic History: Reports: None - Infectious Disease History Infectious Disease History: Reports: Chicken Pox, Other (See Below) Other Infectious Disease History: childhood - Past Surgical History Head Surgeries/Procedures: Reports: None Cardiovascular Surgical History: Reports: None Respiratory Surgical History: Reports: None GI Surgical History: Reports: None Female Surgical History: Reports: Section Other Female Surgeries/Procedures: c/section x3 Endocrine Surgical History: Reports: None Neurological Surgical History: Reports: None Musculoskeletal Surgical History: Reports: None Oncologic Surgical History: Reports: None Dermatological Surgical History: Reports: Plastic Surgical Reconstruction/Repair Social & Family History - Family History Family Medical History: Noncontributory Cardiac: Reports: None OBGYN: Reports: Neurological: Reports: Parkinson's Psychiatric: Reports: None Endocrine/Metabolic: Reports: Diabetes, type II Hematologic: Reports: None Immunologic: Reports: None Oncologic: Reports: Lung, Skin - Caffeine Use Caffeine Use: Reports: Soda ED ROS GENERAL - Review of Systems Review Of Systems: ROS reveals no pertinent complaints other than HPI. ED EXAM, GENERAL - Physical Exam Exam: See Below (See dictation) Course - Vital Signs Last Recorded V/S: Last Vital Signs Temp 37.7 C 09/07/18 21:55 Pulse 123 H 09/07/18 21:55 Resp 20 09/07/18 21:55 BP 121/73 09/07/18 21:55 Pulse Ox 94 L 09/07/18 21:55 - Orders/Labs/Meds Orders: Active Orders 24 hr Category Date Time Status Chest 2V [CR] Stat Exams 09/07/18 22:09 Taken Sodium Chloride 0.9% [Saline Flush] Med 09/07/18 22:10 Active 10 ml FLUSH ASDIRECTED PRN Sodium Chloride 0.9% [Saline Flush] Med 09/07/18 22:10 Active 2.5 ml FLUSH ASDIRECTED PRN Saline Lock Insert [OM.PC] Stat Oth 09/07/18 22:09 Ordered Medication Orders Sodium Chloride (Saline Flush) 10 ml FLUSH ASDIRECTED PRN PRN Reason: Keep Vein Open Last Admin: 09/07/18 22:19 Dose: 10 ml Sodium Chloride (Saline Flush) 2.5 ml FLUSH ASDIRECTED PRN PRN Reason: Keep Vein Open Last Admin: 09/07/18 22:19 Dose: 2.5 ml Labs: Laboratory Tests 09/07/18 09/07/18 09/07/18 Range/Units 22:18 22:18 22:19 WBC 5.17 (4.0-11.0) K/uL RBC 4.46 (4.30-5.90) M/uL Hgb 11.7 L (12.0-16.0) g/dL Hct 34.7 L (36.0-46.0) % MCV 77.8 L (80.0-98.0) fL MCH 26.2 L (27.0-32.0) pg MCHC 33.7 (31.0-37.0) g/dL RDW Std Deviation 40.3 (28.0-62.0) fl RDW Coeff of Enrique 14 (11.0-15.0) % Plt Count 283 (150-400) K/uL MPV 8.80 (7.40-12.00) fL Neut % (Auto) 74.4 (48.0-80.0) % Lymph % (Auto) 15.3 L (16.0-40.0) % [place] % (Auto) 10.1 (0.0-15.0) % Eos % (Auto) 0.0 (0.0-7.0) % Baso % (Auto) 0.2 (0.0-1.5) % Neut # (Auto) 3.9 (1.4-5.7) K/uL Lymph # (Auto) 0.8 (0.6-2.4) K/uL [place] # (Auto) 0.5 (0.0-0.8) K/uL Eos # (Auto) 0.0 (0.0-0.7) K/uL Baso # (Auto) 0.0 (0.0-0.1) K/uL Nucleated RBC % 0.0 /100WBC Nucleated RBCs # 0 K/uL Sodium 138 (136-145) mmol/L Potassium 3.7 (3.5-5.1) mmol/L Chloride 104 (98-107) mmol/L Carbon Dioxide 23.9 (21.0-32.0) mmol/L BUN 7 (7.0-18.0) mg/dL Creatinine 0.8 (0.6-1.0) mg/dL Est Cr Clr Drug Dosing 93.37 mL/min Estimated GFR (MDRD) > 60.0 ml/min Glucose 119 H (74-106) mg/dL Calcium 8.4 L (8.5-10.1) mg/dL Total Bilirubin 0.3 (0.2-1.0) mg/dL AST 12 L (15-37) IU/L ALT 15 (14-63) IU/L Alkaline Phosphatase 90 (46-116) U/L Total Protein 8.3 H (6.4-8.2) g/dL Albumin 3.5 (3.4-5.0) g/dL Globulin 4.8 H (2.6-4.0) g/dL Albumin/Globulin Ratio 0.7 L (0.9-1.6) Lipase 117 (73-393) U/L Urine Color YELLOW Urine Appearance SLT CLOUDY Urine pH 5.5 (5.0-8.0) Ur Specific [place] >= 1.030 (1.001-1.035) Urine Protein 30 H (NEGATIVE) mg/dL Urine Glucose (UA) NEGATIVE (NEGATIVE) mg/dL Urine Ketones TRACE H (NEGATIVE) mg/dL Urine Occult Blood TRACE-INTACT H (NEGATIVE) Urine Nitrite NEGATIVE (NEGATIVE) Urine Bilirubin SMALL H (NEGATIVE) Urine Ictotest NEGATIVE Urine Urobilinogen 1.0 (<2.0) EU/dL Ur Leukocyte Esterase NEGATIVE (NEGATIVE) Urine RBC 0-2 (0-2/HPF) Urine WBC 0-2 (0-5/HPF) Ur Epithelial Cells FEW (NONE-FEW) Amorphous Sediment LIGHT (NEGATIVE) Urine Bacteria FEW (NEGATIVE) Meds: Medications Generic Name Dose Route Start Last Admin Trade Name Freq PRN Reason Stop Dose Admin Sodium Chloride 10 ml 09/07/18 22:10 09/07/18 22:19 Saline Flush FLUSH 10 ml ASDIRECTED PRN Administration Keep Vein Open Sodium Chloride 2.5 ml 09/07/18 22:10 09/07/18 22:19 Saline Flush FLUSH 2.5 ml ASDIRECTED PRN Administration Keep Vein Open Discontinued Medications Generic Name Dose Route Start Last Admin Trade Name Freq PRN Reason Stop Dose Admin Sodium Chloride 1,000 mls @ 999 mls/hr 09/07/18 22:10 09/07/18 22:19 Normal Saline IV 09/07/18 23:10 999 mls/hr STAT ONE Administration Ketorolac Tromethamine 30 mg 09/07/18 22:10 09/07/18 22:19 Toradol IVPUSH 09/07/18 22:11 30 mg ONETIME ONE Administration Ondansetron HCl 4 mg 09/07/18 22:10 09/07/18 22:19 Zofran IVPUSH 09/07/18 22:11 4 mg ONETIME ONE Administration Departure - Departure Time of Disposition: 23:30 Disposition: Home, Self-Care 01 Condition: Good Clinical Impression: Influenza A Vomiting Qualifiers: Vomiting type: unspecified Vomiting Intractability: non-intractable Nausea presence: with nausea Qualified Code(s): R11.2 - Nausea with vomiting, unspecified - Discharge Information Referrals: PCP,None [Primary Care Provider] - Forms: ED Department Discharge Additional Instructions: The following information is given to patients seen in the emergency department who are being discharged to home. This information is to outline your options for follow-up care. We provide all patients seen in our emergency department with a follow-up referral. The need for follow-up, as well as the timing and circumstances, are variable depending upon the specifics of your emergency department visit. If you don't have a primary care physician on staff, we will provide you with a referral. We always advise you to contact your personal physician following an emergency department visit to inform them of the circumstance of the visit and for follow-up with them and/or the need for any referrals to a consulting specialist. The emergency department will also refer you to a specialist when appropriate. This referral assures that you have the opportunity for followup care with a specialist. All of these measure are taken in an effort to provide you with optimal care, which includes your followup. Under all circumstances we always encourage you to contact your private physician who remains a resource for coordinating your care. When calling for followup care, please make the office aware that this follow-up is from your recent emergency room visit. If for any reason you are refused follow-up, please contact the [facility] emergency department at and ask to speak to the emergency department charge nurse. [facility] Primary care- [place] [address] Push hydration with water Gatorade and sips of clear fluids as well as plan bites of food. Because of the duration of your illness you cannot be treated for the influenza A but continue to use [id number] medications for fevers and other symptoms as you choose. Zofran you have been given from [facility] for nausea and vomiting. Please call and schedule a follow-up appointment with your provider or one of our clinic for reevaluation and further care and return to the ER as needed and as discussed - My Orders Last 24 Hours: My Active Orders 09/07/18 22:09 Chest 2V [CR] Stat Saline Lock Insert [OM.PC] Stat 09/07/18 22:10 Sodium Chloride 0.9% [Saline Flush] 10 ml FLUSH ASDIRECTED PRN Sodium Chloride 0.9% [Saline Flush] 2.5 ml FLUSH ASDIRECTED PRN - Assessment/Plan Last 24 Hours: My Active Orders 09/07/18 22:09 Chest 2V [CR] Stat Saline Lock Insert [OM.PC] Stat 09/07/18 22:10 Sodium Chloride 0.9% [Saline Flush] 10 ml FLUSH ASDIRECTED PRN Sodium Chloride 0.9% [Saline Flush] 2.5 ml FLUSH ASDIRECTED PRN
[2018-09-07 22:45] LABS: CHLORIDE,CL 104 mmol/L (98-107); SODIUM,NA 138 mmol/L (136-145)
--- NOTE | 2018-09-07 23:32 | CR ---
INDICATION: pain/sob/cough/vomiting TECHNIQUE: Chest 2 views. COMPARISON: None. FINDINGS: Cardiovascular and mediastinum: Heart size and vasculature are normal in caliber and appearance. Mediastinum is within normal limits. Lungs and pleural spaces: Lungs are clear. No sign of infiltrate or mass. No sign of pleural effusion. No pneumothorax. Bones and soft tissues: No significant findings. IMPRESSION: Unremarkable chest. Dictated by: Marlon Callahan MD @ 09/07/2018 23:30:16 (Electronically Signed)
== END 2018-09-07 23:41 | disposition home or self-care (01) ==
LOC: MW.ED 21:49
DX: J10.1 Influenza due to other identified influenza virus with other respiratory manifestations (principal); R11.2 Nausea with vomiting, unspecified; Z88.1 Allergy status to other antibiotic agents
CPT/HCPCS: 36415; 71046; 80053; 81001; 83690; 85025; 87804; 96361; 96374; 96375; 99283; J1885; J2405; J7040

== ENCOUNTER 2020-06-02 12:07 | Emergency (ER) | payer BC, OTHER ==
--- NOTE | 2020-06-02 12:25 | EDM.PDOC ---
ED HPI GENERAL MEDICAL PROBLEM - General Chief Complaint: Skin Complaint Stated Complaint: POSSIBLE CECULITIS Time Seen by Provider: 06/02/20 12:15 Source of Information: Reports: Patient History Limitations: Reports: No Limitations - History of Present Illness INITIAL COMMENTS - FREE TEXT/NARRATIVE: HISTORY AND PHYSICAL: History of present illness: Patient is a 29-year-old female who presents to the emergency room with complaints of right-sided facial swelling that started this morning. She states she does frequently get "facial cellulitis due to my sinuses". She states over the past 10 years she has had approximately 6 or so of "these infections". She was told it was because she has bad sinuses. Patient denies any fever, chills, headache, change in vision, syncope or near syncope. Denies any difficulty chewing, swallowing or with breathing. Denies any chest pain, back pain, shortness of breath or cough. Denies any GI or symptoms. She has no concerns of . Patient has been eating and drinking appropriately. She denies any penetrating trauma, IV drug use, history of MRSA. Review of systems: As per history of present illness and below otherwise all systems reviewed and negative. Past medical history: As per history of present illness and as reviewed below otherwise noncontributory. Surgical history: As per history of present illness and as reviewed below otherwise noncontributory. Social history: See social history for further information Family history: As per history of present illness and as reviewed below otherwise noncon tributory. Physical exam: General: Well developed and well nourished. Alert and orientated x 3. Nontoxic in appearance and in no acute distress. Vital signs are stable and have been reviewed by me. Nursing notes were reviewed. HEENT: Atraumatic, normocephalic, pupils equal and reactive bilaterally, negative for conjunctival pallor or scleral icterus, mucous membranes moist, multiple dental caries/decay to the right posterior upper gumline. She does have erythema along the posterior gumline. Soft tissue swelling noted to the right maxilla facial area with tenderness. No erythema to the skin under the eye. TMs normal bilaterally, throat clear, neck supple, nontender, trachea midline. No drooling or trismus noted. No meningeal signs. No hot potato voice noted. Lungs: Clear to auscultation, breath sounds equal bilaterally, chest nontender. Normal work of breathing, no accessory muscles used. Heart: S1S2, regular rate and rhythm without overt murmur Abdomen: Soft, nondistended, nontender. Negative for masses or hepatosplenomegaly. Negative for costovertebral tenderness. Skin: Intact, warm, dry. No lesions or rashes noted. Hematologic: No petechiae or purpra. Mucosa appropriate color and normal nail bed color and refill. Extremities: Atraumatic, moves all extremities per self without difficulty or deficits. Neurovascular unremarkable. Neuro: Awake, alert, oriented. Cranial nerves II through XII unremarkable. Cerebellum unremarkable. Motor and sensory unremarkable throughout. Exam nonfocal. Psychiatric: Mood and affect are appropriate. Normal thought process. Answering questions appropriately. Notes: Patient does have multiple dental caries and decay of the posterior molars which I feel is attributing to her soft tissue swelling and "cellulitis". She does have tenderness in the maxillofacial area, and has used clindamycin without any complications in the past. I have talked with the patient about today's findings, in addition to providing specific details for plan of care. Reassessment at the time of disposition demonstrates that the patient is in no acute distress. The patient is stable for discharge, counseling was provided and we discussed in great detail signs and symptoms that would prompt them to return to the Emergency Department. Medication, follow up and supportive care measures were reviewed and discussed. Voices understanding and is agreeable to plan of care. Denies any further questions or concerns at this time. Diagnostics: None Therapeutics: None Prescription: Diclofenac, clindamycin Impression: Dental decay Sinusitis Plan: 1. Today your exam demonstrates an infection. Please take the antibiotic as directed. 2. I have given you a prescription for diclofenac which is a stronger anti- inflammatory. Please take this medication with food as it can cause an upset stomach. Also do not take any NSAIDs such as ibuprofen, Aleve or naproxen while taking this medication. You can take Tylenol for breakthrough pain if needed. 3. We encourage you to follow up with your primary care provider and/or recommended specialist in the next few days for re-evaluation and further care/management. If your symptoms should worsen, new symptoms develop or any of the signs and symptoms we discussed should arise please return to the emergency room or call 911 (if needed). Definitive disposition and diagnosis as appropriate pending reevaluation and review of above. Right facial Pain Score (Numeric/FACES): 2 - Related Data Allergies Allergy/AdvReac Type Severity Reaction Status Date / Time terbutaline Allergy Tachycardia Verified 06/02/20 12:13 Home Meds: Home Meds Diclofenac Sodium [Voltaren] 75 mg PO BIDMEALS PRN #30 tab.cr 06/02/20 [Rx] clindamycin HCL [Clindamycin HCl] 450 mg PO TID 5 Days #45 capsule 06/02/20 [Rx] Past Medical History HEENT History: Reports: Other (See Below) Other HEENT History: wears glasses/contacts Cardiovascular History: Reports: Other (See Below) Other Cardiovascular History: sinus tachycardia during had echo 04/05 EF 60%. 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 - Infectious Disease History Infectious Disease History: Reports: Chicken Pox, Other (See Below) Other Infectious Disease History: childhood - Past Surgical History Head Surgeries/Procedures: Reports: None Cardiovascular Surgical History: Reports: None Respiratory Surgical History: Reports: None GI Surgical History: Reports: None Female Surgical History: Reports: Section Other Female Surgeries/Procedures: c/section x3 Endocrine Surgical History: Reports: None Neurological Surgical History: Reports: None Musculoskeletal Surgical History: Reports: None Oncologic Surgical History: Reports: None Dermatological Surgical History: Reports: Plastic Surgical Reconstruction/Repair Social & Family History - Family History Family Medical History: No Pertinent Family History Cardiac: Reports: None OBGYN: Reports: Neurological: Reports: Parkinson's Psychiatric: Reports: None Endocrine/Metabolic: Reports: Diabetes, type II Hematologic: Reports: None Immunologic: Reports: None Oncologic: Reports: Lung, Skin - Tobacco Use Tobacco Use Status *Q: Never Tobacco User - Caffeine Use Caffeine Use: Reports: Soda - Recreational Drug Use Recreational Drug Use: No ED ROS GENERAL - Review of Systems Review Of Systems: Comprehensive ROS is negative, except as noted in HPI. ED EXAM, SKIN/RASH Exam: See Below Course - Vital Signs Last Recorded V/S: Last Vital Signs Temp 98.3 F 06/02/20 12:13 Pulse 103 H 06/02/20 12:13 Resp 16 06/02/20 12:13 BP 135/72 06/02/20 12:13 Pulse Ox 98 06/02/20 12:13 Departure - Departure Time of Disposition: 12:24 Disposition: Home, Self-Care 01 Clinical Impression: Dental decay Sinusitis Qualifiers: Sinusitis location: maxillary Chronicity: acute Recurrence: recurrent Qualified Code(s): J01.01 - Acute recurrent maxillary sinusitis - Discharge Information Prescriptions: clindamycin HCL [Clindamycin HCl] 450 mg PO TID 5 Days #45 capsule Diclofenac Sodium [Voltaren] 75 mg PO BIDMEALS PRN #30 tab.cr PRN Reason: Pain Instructions: Cellulitis, Adult, [id number] Referrals: PCP,None [Primary Care Provider] - Forms: ED Department Discharge Additional Instructions: The following information is given to patients seen in the emergency department who are being discharged to home. This information is to outline your options for follow-up care. We provide all patients seen in our emergency department with a follow-up referral. The need for follow-up, as well as the timing and circumstances, are variable depending upon the specifics of your emergency department visit. If you don't have a primary care physician on staff, we will provide you with a referral. We always advise you to contact your personal physician following an emergency department visit to inform them of the circumstance of the visit and for follow-up with them and/or the need for any referrals to a consulting specialist. The emergency department will also refer you to a specialist when appropriate. This referral assures that you have the opportunity for follow-up care with a specialist. All of these measure are taken in an effort to provide you with optimal care, which includes your follow-up. Under all circumstances we always encourage you to contact your private physician who remains a resource for coordinating your care. When calling for follow-up care, please make the office aware that this follow-up is from your recent emergency room visit. If for any reason you are refused follow-up, please contact the [facility] Emergency Department at and asked to speak to the emergency department charge nurse. [facility] [address] [place] [address] [facility] [address] [place] [id number] Thank you for choosing the [facility] emergency department in [place] for your medical needs today. It was a pleasure caring for you. Today you were seen in the emergency department for facial swelling and infection. 1. Today your exam demonstrates an infection. Please take the antibiotic as directed. 2. I have given you a prescription for diclofenac which is a stronger anti- inflammatory. Please take this medication with food as it can cause an upset stomach. Also do not take any NSAIDs such as ibuprofen, Aleve or naproxen while taking this medication. You can take Tylenol for breakthrough pain if needed. 3. We encourage you to follow up with your primary care provider and/or recommended specialist in the next few days for re-evaluation and further care/management. If your symptoms should worsen, new symptoms develop or any of the signs and symptoms we discussed should arise please return to the emergency room or call 911 (if needed). Sepsis Event Note (ED) - Evaluation Sepsis Screening Result: No Definite Risk - Focused Exam Vital Signs: Vital Signs Temp Pulse Resp BP Pulse Ox 06/02/20 12:13 98.3 F 103 H 16 135/72 98
== END 2020-06-02 12:59 | disposition home or self-care (01) ==
LOC: MW.ED 12:07
DX: J01.01 Acute recurrent maxillary sinusitis (principal); K02.9 Dental caries, unspecified; Z88.8 Allergy status to other drugs, medicaments and biological substances
CPT/HCPCS: 99283

== ENCOUNTER 2020-08-02 22:25 | Emergency (ER) | payer BC ==
[2020-08-02] MEDS ORDERED: Ketorolac 15 MG/ML SDV IM ONE (23:11)
[2020-08-02 23:40] LABS: BLOOD UREA NITROGEN,BUN 8 mg/dL (7.0-18.0); CHLORIDE,CL 104 mmol/L (98-107); GLUCOSE RANDOM 102 mg/dL (74-106); SODIUM,NA 139 mmol/L (136-145)
[2020-08-03 00:14] LABS: CARBON DIOXIDE,CO2 26.5 mmol/L (21.0-32.0)
--- NOTE | 2020-08-03 00:18 | CT ---
INDICATION: Left flank pain TECHNIQUE: Axial images were obtained from the diaphragm to the pubic symphysis. Reformats were obtained in the coronal and sagittal plane. IV Contrast: None Oral Contrast: None COMPARISON: Abdomen and pelvis CT 08/07/2017 FINDINGS: Lower chest: Unremarkable. Liver: Unremarkable. Normal in size and attenuation. No masses. Gallbladder and bile ducts: Unremarkable. No stones or inflammation. No biliary dilatation. Spleen: Unremarkable. Normal in size without mass. Pancreas: Unremarkable. No mass or inflammation. Adrenal glands: Unremarkable. No nodules. Kidneys: Unremarkable. No masses, stones, or hydronephrosis. Vasculature: Unremarkable. GI tract: The stomach is unremarkable. There are no dilated loops of large or small intestine. Appendix is unremarkable. Pelvis: Unremarkable. Bones: Unremarkable for age. IMPRESSION: Unremarkable abdomen and pelvis CT. No nephrolithiasis or hydronephrosis. No dilated bowel or localized inflammation. Please note that all CT scans at this facility use dose modulation, iterative reconstruction, and/or weight-based dosing when appropriate to reduce radiation dose to as low as reasonably achievable. Dictated by Martin Hagan MD @ Aug 03 2020 12:11AM Signed by Dr. Martin Hagan @ Aug 03 2020 12:16AM
[2020-08-03] MEDS ORDERED: Cephalexin 500 MG Cap PO ONE (01:38)
--- NOTE | 2020-08-03 01:41 | EDM.PDOC ---
ED HPI GENERAL MEDICAL PROBLEM - General Chief Complaint: Flank Pain Stated Complaint: BACK PAIN Time Seen by Provider: 08/02/20 22:33 - History of Present Illness INITIAL COMMENTS - FREE TEXT/NARRATIVE: CHIEF COMPLAINT(S): Left back pain HISTORY OF PRESENT ILLNESS: This is a 29-year-old man without any past medical history who comes to the emergency department with a chief complaint of left back pain. The patient states that she has been experiencing back pain for approximately 2 days. She states that it starts in her left upper back and radiates to her front of her abdomen. She describes the pain as sharp/hot rated 8 out of 10 associated with nausea. She denies any vomiting, melena, hematochezia, hematemesis or bilious emesis. She states that the pain is worse when she walks. She denies any dysuria but states that she does have some blood spotting that she noticed. She states that she did take ibuprofen but it did not seem to help. She denies any fall or injury. She denies any history of kidney stones. She states that she does have a family history of kidney stones. She denies any fevers or chills, chest pain or shortness of breath. REVIEW OF SYSTEMS: Constitutional: Denies fever, chills. Eyes: Denies eye pain Ears, Nose, Mouth, & Throat: Denies earache Cardiovascular: Denies chest pain Respiratory: Denies shortness of breath Gastrointestinal: Positive for left lower quadrant pain that radiates from the left flank and nausea. Denies vomiting, hematochezia. Genitourinary: Positive for right flank pain and possible hematuria. Denies dysuria. Skin:Denies a rash MSK: Positive for left flank pain. Denies joint pain Neurological: Denies blurred vision Psychiatric: Denies depression PAST MEDICAL HISTORY: As per history of present illness and as reviewed below otherwise noncontributory. SURGICAL HISTORY: As per history of present illness and as reviewed below otherwise noncontributory. LMP: 1 week ago SOCIAL HISTORY: As per history of present illness and as reviewed below oth erwise noncontributory. FAMILY HISTORY: As per history of present illness and as reviewed below otherwise noncontributory. EXAMINATION OF ORGAN SYSTEMS/BODY AREAS: Constitutional: Blood pressure was 109/82, heart rate 79, respiratory rate 18 with an oxygen saturation 9 9% on room air. Temperature 36.2 General: Overall well-appearing woman who is in no acute distress. Psychiatric: Appropriate mood and affect. Eyes: No scleral icterus or conjunctival erythema ENMT: Moist mucous membranes. No pharyngeal erythema Cardiovascular: Regular, rate, and rhythm. No gallops, murmurs, or rubs. Bila teral upper extremity pulses symmetric and intact. No peripheral edema. No JVD. Respiratory: Lungs clear to auscultation bilaterally. No wheezes, rales, or rhonchi. Gastrointestinal: Soft, minimal tenderness to the left lower quadrant. Nondistended. No rebound or guarding. Normoactive bowel sounds Genitourinary: Mild suprapubic tenderness. There is left CVA tenderness. Musculoskeletal: Normal range of motion. Skin: No lesions or abrasions. Neurological: Alert, GCS 15 MEDICAL DECISION MAKING AND COURSE IN THE ED WITH INTERPRETATION/REVIEW OF DIAGNOSTIC STUDIES: This is a 29-year-old woman without any significant past medical history who comes to the emergency department with acute left flank pain radiating anteriorly associated with possible hematuria. At this time differential includes cystitis versus nephrolithiasis versus musculoskeletal strain. Will obtain CBC, BMP, UA, CT abdomen pelvis without contrast. We will provide the patient with Toradol for pain relief. Laboratory: CBC reveals a microcytic anemia with an MCV of 77.2, hemoglobin of 10.5 and hematocrit of 32.2. BMP is unremarkable. hCG is negative Urinalysis was a clean catch and was negative for leukocyte esterase, negative for nitrites, and positive for blood. Interpretation: Hematuria The radiological images were viewed by myself along with reading the report from the radiologist. CT abdomen pelvis without contrast does not reveal any acute intra-abdominal pathology no evidence of nephrolithiasis or hydronephrosis. After imaging I did discuss the results with the patient. At this time given the hematuria we will start the patient on Keflex for presumed cystitis. I discussed with her that if she had worsening pain, fevers that she need to return to the emergency department. I did send off a urine culture at this time. She was amenable to discharge and had no further questions. DISPOSITION: The patient was discharged home in stable condition. The patient will follow up with PCP within 5 days CONDITION: Fair PROCEDURES: None FINAL IMPRESSION(S)/DIAGNOSES: 1. Acute flank pain, known etiology 2. Acute hematuria likely secondary to acute cystitis Michael Wise M.D. bilat flank Pain Score (Numeric/FACES): 8 - Related Data Allergies Allergy/AdvReac Type Severity Reaction Status Date / Time terbutaline Allergy Tachycardia Verified 08/02/20 22:40 Home Meds: Home Meds cephALEXin [Cephalexin] 500 mg PO BID #14 capsule 08/03/20 [Rx] Past Medical History HEENT History: Reports: Other (See Below) Other HEENT History: wears glasses/contacts Cardiovascular History: Reports: Other (See Below) Other Cardiovascular History: sinus tachycardia during had echo 04/05 EF 60%. No changes or medications started Respiratory History: Reports: None Gastrointestinal History: Reports: GERD Genitourinary History: Reports: None DOCTOR OF OPTOMETRY History: Reports: Musculoskeletal History: Reports: None Neurological History: Reports: None Psychiatric History: Reports: None Endocrine/Metabolic History: Reports: None Hematologic History: Reports: None Immunologic History: Reports: None Oncologic (Cancer) History: Reports: None Dermatologic History: Reports: None, Cellulitis Other Dermatologic History: Recurrent facial cellulitis. - Infectious Disease History Infectious Disease History: Reports: Chicken Pox, Other (See Below) Other Infectious Disease History: childhood - Past Surgical History Head Surgeries/Procedures: Reports: None Cardiovascular Surgical History: Reports: None Respiratory Surgical History: Reports: None GI Surgical History: Reports: None Female Surgical History: Reports: Section Other Female Surgeries/Procedures: c/section x4 Endocrine Surgical History: Reports: None Neurological Surgical History: Reports: None Musculoskeletal Surgical History: Reports: None Oncologic Surgical History: Reports: None Dermatological Surgical History: Reports: Plastic Surgical Reconstruction/Repair Social & Family History - Family History Family Medical History: No Pertinent Family History Cardiac: Reports: None OBGYN: Reports: Neurological: Reports: Parkinson's Psychiatric: Reports: None Endocrine/Metabolic: Reports: Diabetes, type II Hematologic: Reports: None Immunologic: Reports: None Oncologic: Reports: Lung, Skin - Tobacco Use Tobacco Use Status *Q: Never Tobacco User - Caffeine Use Caffeine Use: Reports: Soda - Recreational Drug Use Recreational Drug Use: No ED ROS GENERAL - Review of Systems Review Of Systems: See Below ED EXAM, RENAL/ - Physical Exam Exam: See Below Course - Vital Signs Last Recorded V/S: Last Vital Signs Temp 36.2 C 08/02/20 22:37 Pulse 76 08/03/20 01:57 Resp 16 08/03/20 01:57 BP 108/63 08/03/20 01:57 Pulse Ox 98 08/03/20 01:57 - Orders/Labs/Meds Labs: Laboratory Tests 08/02/20 08/02/20 08/02/20 Range/Units 23:18 23:18 23:55 WBC 8.10 (4.0-11.0) K/uL RBC 4.17 L (4.30-5.90) M/uL Hgb 10.5 L (12.0-16.0) g/dL Hct 32.2 L (36.0-46.0) % MCV 77.2 L (80.0-98.0) fL MCH 25.2 L (27.0-32.0) pg MCHC 32.6 (31.0-37.0) g/dL RDW Std Deviation 40.7 (28.0-62.0) fl RDW Coeff of Enrique 14 (11.0-15.0) % Plt Count 367 (150-400) K/uL MPV 8.60 (7.40-12.00) fL Neut % (Auto) 56.6 (48.0-80.0) % Lymph % (Auto) 35.8 (16.0-40.0) % Mccracken % (Auto) 5.1 (0.0-15.0) % Eos % (Auto) 2.0 (0.0-7.0) % Baso % (Auto) 0.5 (0.0-1.5) % Neut # (Auto) 4.6 (1.4-5.7) K/uL Lymph # (Auto) 2.9 H (0.6-2.4) K/uL Mccracken # (Auto) 0.4 (0.0-0.8) K/uL Eos # (Auto) 0.2 (0.0-0.7) K/uL Baso # (Auto) 0.0 (0.0-0.1) K/uL Nucleated RBC % 0.0 /100WBC Nucleated RBCs # 0 K/uL Sodium 139 (136-145) mmol/L Potassium 4.0 (3.5-5.1) mmol/L Chloride 104 (98-107) mmol/L Carbon Dioxide 26.5 (21.0-32.0) mmol/L BUN 8 (7.0-18.0) mg/dL Creatinine 0.9 (0.6-1.0) mg/dL Est Cr Clr Drug Dosing 65.05 mL/min Estimated GFR (MDRD) > 60.0 ml/min Glucose 102 (74-106) mg/dL Calcium 8.6 (8.5-10.1) mg/dL Urine Color Urine Appearance Urine pH (5.0-8.0) Ur Specific [place] (1.001-1.035) Urine Protein (NEGATIVE) mg/dL Urine Glucose (UA) (NEGATIVE) mg/dL Urine Ketones (NEGATIVE) mg/dL Urine Occult Blood (NEGATIVE) Urine Nitrite (NEGATIVE) Urine Bilirubin (NEGATIVE) Urine Urobilinogen (<2.0) EU/dL Ur Leukocyte Esterase (NEGATIVE) Urine RBC (0-2/HPF) Urine WBC (0-5/HPF) Ur Epithelial Cells (NONE-FEW) Urine Bacteria (NEGATIVE) Urine Mucus (NONE-MOD) Urine HCG, Qual NEGATIVE (NEGATIVE) 08/02/20 Range/Units 23:55 WBC (4.0-11.0) K/uL RBC (4.30-5.90) M/uL Hgb (12.0-16.0) g/dL Hct (36.0-46.0) % MCV (80.0-98.0) fL MCH (27.0-32.0) pg MCHC (31.0-37.0) g/dL RDW Std Deviation (28.0-62.0) fl RDW Coeff of Enrique (11.0-15.0) % Plt Count (150-400) K/uL MPV (7.40-12.00) fL Neut % (Auto) (48.0-80.0) % Lymph % (Auto) (16.0-40.0) % Mccracken % (Auto) (0.0-15.0) % Eos % (Auto) (0.0-7.0) % Baso % (Auto) (0.0-1.5) % Neut # (Auto) (1.4-5.7) K/uL Lymph # (Auto) (0.6-2.4) K/uL Mccracken # (Auto) (0.0-0.8) K/uL Eos # (Auto) (0.0-0.7) K/uL Baso # (Auto) (0.0-0.1) K/uL Nucleated RBC % /100WBC Nucleated RBCs # K/uL Sodium (136-145) mmol/L Potassium (3.5-5.1) mmol/L Chloride (98-107) mmol/L Carbon Dioxide (21.0-32.0) mmol/L BUN (7.0-18.0) mg/dL Creatinine (0.6-1.0) mg/dL Est Cr Clr Drug Dosing mL/min Estimated GFR (MDRD) ml/min Glucose (74-106) mg/dL Calcium (8.5-10.1) mg/dL Urine Color YELLOW Urine Appearance HAZY Urine pH 6.0 (5.0-8.0) Ur Specific [place] 1.010 (1.001-1.035) Urine Protein NEGATIVE (NEGATIVE) mg/dL Urine Glucose (UA) NEGATIVE (NEGATIVE) mg/dL Urine Ketones NEGATIVE (NEGATIVE) mg/dL Urine Occult Blood LARGE H (NEGATIVE) Urine Nitrite NEGATIVE (NEGATIVE) Urine Bilirubin NEGATIVE (NEGATIVE) Urine Urobilinogen 0.2 (<2.0) EU/dL Ur Leukocyte Esterase NEGATIVE (NEGATIVE) Urine RBC 1-3 (0-2/HPF) Urine WBC 0-2 (0-5/HPF) Ur Epithelial Cells MODERATE (NONE-FEW) Urine Bacteria FEW (NEGATIVE) Urine Mucus LIGHT (NONE-MOD) Urine HCG, Qual (NEGATIVE) Meds: Medications Discontinued Medications Generic Name Dose Route Start Last Admin Trade Name Hakan PRN Reason Stop Dose Admin Cephalexin 500 mg 08/03/20 01:38 08/03/20 01:57 Keflex PO 08/03/20 01:39 500 mg ONETIME ONE Administration Ketorolac Tromethamine 15 mg 08/02/20 23:11 08/02/20 23:16 Toradol IM 08/02/20 23:12 15 mg ONETIME ONE Administration Departure - Departure Time of Disposition: 01:40 Disposition: Home, Self-Care 01 Condition: Fair Clinical Impression: UTI, Urinary tract infectious disease Hematuria Qualifiers: Hematuria type: unspecified type Qualified Code(s): R31.9 - Hematuria, unspecified - Discharge Information *PRESCRIPTION DRUG MONITORING PROGRAM REVIEWED*: No *COPY OF PRESCRIPTION DRUG MONITORING REPORT IN PATIENT RADHA: No Prescriptions: cephALEXin [Cephalexin] 500 mg PO BID #14 capsule Instructions: Urinary Tract Infection, Adult, [id number], Flank Pain, Adult, [id number] Referrals: PCP,None [Primary Care Provider] - Forms: ED Department Discharge Additional Instructions: Your evaluated today on an emergent basis. At this time your work-up did not reveal any kidney stones. There was microscopic blood in your urine. Most of the time this is consistent with a urinary tract infection. We will provide you with antibiotics. Please complete all the antibiotics as prescribed. If you have any worsening pain, fevers please return to the emergency department. You are welcome to use [id number] Tylenol and Motrin for pain relief. Please follow-up with your primary care physician. [facility] [address] [place] [address] [place] [address] The patient is informed of any results of their evaluation and diagnostic workup and all questions are answered. They are given discharge instructions and return precautions. The patient is stable for discharge. The patient states they understand and agree with the plan and that they will return if their symptoms get worse or if they have any new concerns. The following information is given to patients seen in the emergency department who are being discharged to home. This information is to outline your options for follow-up care. We provide all patients seen in our emergency department with a follow-up referral. The need for follow-up, as well as the timing and circumstances, are variable de pending upon the specifics of your emergency department visit. If you don't have a primary care physician on staff, we will provide you with a referral. We always advise you to contact your personal physician following an emergency department visit to inform them of the circumstance of the visit and for follow-up with them and/or the need for any referrals to a consulting specialist. The emergency department will also refer you to a specialist when appropriate. This referral assures that you have the opportunity for follow-up care with a specialist. All of these measure are taken in an effort to provide you with optimal care, which includes your follow-up. Under all circumstances we always encourage you to contact your private physician who remains a resource for coordinating your care. When calling for follow-up care, please make the office aware that this follow-up is from your recent emergency room visit. If for any reason you are refused follow-up, please contact the [facility] Emergency Department at and asked to speak to the emergency department charge nurse. Sepsis Event Note (ED) - Evaluation Sepsis Screening Result: No Definite Risk
== END 2020-08-03 01:59 | disposition home or self-care (01) ==
LOC: MW.ED 22:25
DX: N39.0 Urinary tract infection, site not specified (principal); R31.9 Hematuria, unspecified; Z88.8 Allergy status to other drugs, medicaments and biological substances
CPT/HCPCS: 36415; 74176; 80048; 81001; 81025; 85025; 87086; 96372; 99284; A9270; J1885

== ENCOUNTER 2024-07-23 10:10 | Emergency (ER) | payer BC ==
[2024-07-23] MEDS: Sodium Chloride 0.9% 1,000 ML IV ONE (10:47)
[2024-07-23 10:55] LABS: BASOPHILS ABSOLUTE AUTO 0.03 K/uL (0.00-0.20); BASOPHILS PERCENT AUTO 0.4 % (0.0-1.0); EOSINOPHILS ABSOLUTE AUTO 0.06 K/uL (0.00-0.45); EOSINOPHILS PERCENT AUTO 0.8 % (0.0-6.0); HEMATOCRIT 34.7 % (37.0-47.0); HEMOGLOBIN 12.2 g/dL (12.0-16.0); IMMATURE GRAN ABSOLUTE AUTO 0.01 K/uL (0.00-0.05); IMMATURE GRAN PERCENT AUTO 0.1 % (0.0-0.4); LYMPHOCYTES PERCENT AUTO 20.6 % (24.0-44.0); MEAN CORPUSCULAR HEMOGLOBIN 27.2 pg (28.0-32.0); MEAN CORPUSCULAR HGB CONC 35.2 g/dL (32.0-36.0); MEAN CORPUSCULAR VOLUME 77.3 fL (83.0-99.0); MEAN PLATELET VOLUME 9.1 fL (9.4-12.3); MONOCYTES ABSOLUTE AUTO 0.57 K/uL (0.00-0.80); MONOCYTES PERCENT AUTO 7.8 % (0.0-8.0); NEUTROPHILS ABSOLUTE AUTO 5.12 K/uL (1.80-7.70); NEUTROPHILS PERCENT AUTO 70.3 % (41.0-71.0); PLATELET COUNT,PLT 338 K/uL (150-400); RED BLOOD CELL COUNT 4.49 M/uL (4.10-5.30); WHITE BLOOD CELL COUNT,WBC 7.29 K/uL (3.9-11.3)
[2024-07-23 11:24] LABS: A/G RATIO 0.7 (0.9-1.6); ALBUMIN 3.2 g/dL (3.4-5.0); BILIRUBIN TOTAL 0.4 mg/dL (0.2-1.0); CALCIUM 8.7 mg/dL (8.5-10.1); CARBON DIOXIDE,CO2 24.2 mmol/L (21.0-32.0); CREATININE 0.9 mg/dL (0.6-1.0); EST CRCL DRUG DOSING (CG) 81.67 mL/min; POTASSIUM,K 3.7 mmol/L (3.5-5.1); PROTEIN TOTAL,TP 8.1 g/dL (6.4-8.2)
[2024-07-23 11:28] LABS: APPEARANCE,URINE CLEAR; COLOR,URINE YELLOW; GLUCOSE,URINE NEGATIVE (NEGATIVE); KETONES,URINE 15 mg/dL (NEGATIVE); LEUKOCYTE ESTERASE,URINE NEGATIVE (NEGATIVE); NITRITE,URINE NEGATIVE (NEGATIVE); OCCULT BLOOD,URINE NEGATIVE (NEGATIVE); PROTEIN,URINE 30 mg/dL (NEGATIVE)
[2024-07-23 11:37] LABS: BACTERIA,URINE FEW (NEGATIVE); BILIRUBIN,URINE SMALL (NEGATIVE); EPITHELIAL CELLS,URINE FEW (NONE-FEW); RBC,URINE 0-2 (0-2/HPF); WBC,URINE 0-4 (0-5/HPF)
== END 2024-07-23 12:29 | disposition home or self-care (01) ==
LOC: MW.ED 10:10
DX: J18.9 Pneumonia, unspecified organism (principal); Z88.8 Allergy status to other drugs, medicaments and biological substances; Z79.899 Other long term (current) drug therapy; Z75.8 Other problems related to medical facilities and other health care
CPT/HCPCS: 36415; 71046; 80053; 81001; 81025; 85025; 87428; 99283; J7030